=== PATIENT | female | born 1995 | race Caucasian/White ===

== ENCOUNTER 2020-03-27 12:26 | Emergency (ER) | payer OTHER ==
[2020-03-27] MEDS ORDERED: NA CHLORIDE 0.9% 1,000 ML ONE (12:58)
[2020-03-27 13:19] LABS: Absolute Lymphocytes (CBC) 2.5 K/uL (0.7-4.9); Basophils % 0.3 % (0-1.3); Hematocrit 41.3 % (36.0-45.0); Lymphocytes % 21.6 % (15.3-44.8); MPV 8.9 fL (7.6-11.3)
[2020-03-27 13:37] LABS: Protime INR 0.99
[2020-03-27 13:48] LABS: ALT/SGPT 20 U/L (12-78); AST/SGOT 19 U/L (15-37); Albumin 4.1 g/dL (3.4-5.0); Alkaline Phosphatase 46 U/L (45-117); BUN Blood Urea Nitrogen 13 mg/dL (7-18); Bicarbonate 29 mmol/L (21-32); Bilirubin Direct 0.3 mg/dL (0-0.2); CKMB Creatine Kinase MB < 1.0 ng/mL (0.3-3.6); Creatine Phosphokinase 49 U/L (26-192); Glucose Level 85 mg/dL (74-106); Lipase 110 U/L (73-393); Magnesium 2.3 mg/dL (1.8-2.4); Potassium 4.1 mmol/L (3.5-5.1); Protein, Total 7.8 g/dL (6.4-8.2); Sodium Level 139 mmol/L (136-145); Troponin (Emerg Dept Use Only) < 0.02 ng/mL (0.0-0.045)
[2020-03-27 14:25] LABS: Urine Blood NEGATIVE (NEG); Urine Glucose NEGATIVE (NEG)
[2020-03-27 14:26] LABS: Urine Protein NEGATIVE (NEG); Urine pH 7.5 (5.0-7.0)
--- NOTE | 2020-03-27 14:30 | EDPHYS ---
Physician Documentation [facility] Name: Silvina Kellogg Age: 24 yrs Sex: Female : 1995 Arrival Date: 03/27/2020 Time: 12:32 Bed 24 Private MD: ED Physician Babak Cole HPI: 03/27 12:59 This 24 yrs old Female presents to ER via EMS with complaints of passed out. ma2 12:59 The patient presents with a history of heart racing. Context: The symptoms occur with ma2 anxiety. Onset: The symptoms/episode began/occurred suddenly, 1 hour(s) ago. Associated signs and symptoms: The patient has no apparent associated signs or symptoms. Severity of symptoms: At their worst the symptoms were very mild in the emergency department the symptoms have resolved. The patient has not experienced similar symptoms in the past. Historical: - Allergies: 12:36 No Known Allergies; jd3 - Home Meds: 12:36 None [Active]; jd3 - PMHx: 12:36 None; jd3 - PSHx: 12:36 None; jd3 - Immunization history:: Adult Immunizations up to date. - Social history:: Smoking status: Patient denies any tobacco usage or history of. ROS: 12:59 Constitutional: Negative for fever, chills, and weight loss. ma2 12:59 All other systems are negative. Exam: 12:59 Constitutional: This is a well developed, well nourished patient who is awake, alert, ma2 and in no acute distress. Head/Face: Normocephalic, atraumatic. Eyes: Pupils equal round and reactive to light, extra-ocular motions intact. Lids and lashes normal. Conjunctiva and sclera are non-icteric and not injected. Cornea within normal limits. Periorbital areas with no swelling, redness, or edema. ENT: Nares patent. No nasal discharge, no septal abnormalities noted. Tympanic membranes are normal and external auditory canals are clear. Oropharynx with no redness, swelling, or masses, exudates, or evidence of obstruction, uvula midline. Mucous membranes moist. Neck: Trachea midline, no thyromegaly or masses palpated, and no cervical lymphadenopathy. Supple, full range of motion without nuchal rigidity, or vertebral point tenderness. No Meningismus. Chest/axilla: Normal chest wall appearance and motion. Nontender with no deformity. No lesions are appreciated. Cardiovascular: Regular rate and rhythm with a normal S1 and S2. No gallops, murmurs, or rubs. Normal PMI, no JVD. No pulse deficits. Respiratory: Lungs have equal breath sounds bilaterally, clear to auscultation and percussion. No rales, rhonchi or wheezes noted. No increased work of breathing, no retractions or nasal flaring. Abdomen/GI: Soft, non-tender, with normal bowel sounds. No distension or tympany. No guarding or rebound. No evidence of tenderness throughout. Skin: Warm, dry with normal turgor. Normal color with no rashes, no lesions, and no evidence of cellulitis. MS/ Extremity: Pulses equal, no cyanosis. Neurovascular intact. Full, normal range of motion. Neuro: Awake and alert, GCS 15, oriented to person, place, time, and situation. Cranial nerves II-XII grossly intact. Motor strength 5/5 in all extremities. Sensory grossly intact. Cerebellar exam normal. Normal gait. Vital Signs: 12:36 BP 138 / 82; Pulse 87; Resp 17 S; Temp 97.7(O); Pulse Ox 100% on R/A; Weight 56.7 kg jd3 (R); Height 5 ft. 7 in. (170.18 cm) (R); Pain 0/10; 13:30 BP 116 / 74; Pulse 73; Resp 18; Pulse Ox 99% on R/A; zb 14:40 BP 113 / 73; Pulse 90; Resp 18; Pulse Ox 100% on R/A; zb 12:36 Body Mass Index 19.58 (56.70 kg, 170.18 cm) jd3 MDM: 12:32 Patient medically screened. ma2 12:59 Differential diagnosis: arrythmia, dehydration, stress disorder. ma2 14:29 Data reviewed: vital signs, nurses notes. Counseling: I had a detailed discussion with ma2 the patient and/or guardian regarding: the historical points, exam findings, and any diagnostic results supporting the discharge/admit diagnosis, the presence of at least one elevated blood pressure reading (>120/80) during this emergency department visit, the need for outpatient follow up. Response to treatment: the patient's symptoms have markedly improved after treatment. 03/27 12:35 Order name: Basic Metabolic Panel nc2 03/27 12:35 Order name: CBC with Diff ma2 03/27 12:35 Order name: Ckmb ma2 03/27 12:35 Order name: CPK ma2 03/27 12:35 Order name: Hepatic Function ma2 03/27 12:35 Order name: Lipase ma2 03/27 12:35 Order name: Magnesium ma2 03/27 12:35 Order name: Protime (+inr) ma2 03/27 12:35 Order name: Ptt, Activated ma2 03/27 12:35 Order name: Troponin (emerg Dept Use Only) nc2 03/27 13:24 Order name: CBC with Automated Diff; Complete Time: 14:18 EDMS 03/27 13:39 Order name: Protime (+INR); Complete Time: 14:18 EDMS 03/27 13:39 Order name: PTT, Activated Partial Thromb; Complete Time: 14:18 EDMS 03/27 13:48 Order name: Basic Metabolic Panel; Complete Time: 14:18 EDMS 03/27 12:35 Order name: EKG; Complete Time: 12:41 ma2 03/27 12:35 Order name: Cardiac monitoring; Complete Time: 12:55 ma2 03/27 12:35 Order name: EKG - Nurse/Tech; Complete Time: 12:55 ma2 03/27 12:35 Order name: IV Saline Lock; Complete Time: 12:39 ma2 03/27 12:35 Order name: Labs collected and sent; Complete Time: 13:08 ma2 03/27 12:35 Order name: NPO; Complete Time: 12:39 ma2 03/27 12:35 Order name: O2 Per Protocol; Complete Time: 12:55 ma2 03/27 12:35 Order name: O2 Sat Monitoring; Complete Time: 12:55 ma2 03/27 12:35 Order name: Urine Dipstick-Ancillary (obtain specimen); Complete Time: 13:56 ma2 03/27 13:48 Order name: Magnesium; Complete Time: 14:18 EDMS 03/27 13:48 Order name: Lipase; Complete Time: 14:18 EDMS 03/27 13:57 Order name: Urine Dipstick--Ancillary (enter results) 03/27 13:57 Order name: Urine --Ancillary (enter results) bd 03/27 14:25 Order name: Urine --Ancillary; Complete Time: 14:30 EDMS 12 14:25 Order name: Urine Dipstick-Ancillary; Complete Time: 14:30 EDMS Administered Medications: 13:13 Drug: NS 0.9% 1000 ml Route: IV; Rate: 1 bolus; Site: right femoral; zb 14:00 Follow up: Response: No adverse reaction; IV Status: Completed infusion; IV Intake: zb 1000ml Disposition: 03/27/20 14:29 Discharged to Home. Impression: Syncope and collapse - vasovagal. - Condition is Stable. - Discharge Instructions: Syncope, [id number], Vasovagal Syncope, Adult. - Medication Reconciliation Form, Thank You Letter, Antibiotic Education, Prescription Opioid Use form. - Follow up: Private Physician; When: Today; Reason: Continuance of care. Signatures: Dispatcher [employer] Munir Davis RN RN jd3 Alzahri, Mohammad, MD MD ma2 Aria Galdamez RN RN zb Corrections: (The following items were deleted from the chart) 14:56 14:29 03/27/2020 14:29 Discharged to Home. Impression: Syncope and collapse - zb vasovagal. Condition is Stable. Forms are Medication Reconciliation Form, Thank You Letter, Antibiotic Education, Prescription Opioid Use. Follow up: Private Physician; When: Today; Reason: Continuance of care. rock
--- NOTE | 2020-03-27 14:30 | ER ---
Nurse's Notes [facility] Name: Silvina Kellogg Age: 24 yrs Sex: Female : 1995 Arrival Date: 03/27/2020 Time: 12:32 Bed 24 Private MD: Diagnosis: Syncope and collapse-vasovagal Presentation: 03/27 12:32 Chief complaint: EMS states: "the pt had a syncope episode today while talking with a jd3 co-worker. she said she felt her knees get weak and give out and then blacked out. she reports that this has happened before, but this is the longest it has lasted. at this time she is reporting no pain or any symptoms. denies nausea and vomiting. denies dizziness and feeling faint. orthostatics were negative as well. BGL was 100. she has been A\\T\\O X 4 the entire time. we started a 20 G to her left forearm.". Coronavirus screen: At this time, the client does not indicate any symptoms associated with coronavirus-19. Ebola Screen: Patient negative for fever greater than or equal to 101.5 degrees Fahrenheit, and additional compatible Ebola Virus Disease symptoms. Initial Sepsis Screen: Does the patient meet any 2 criteria? No. Patient's initial sepsis screen is negative. Does the patient have a suspected source of infection? No. Patient's initial sepsis screen is negative. Risk Assessment: Do you want to hurt yourself or someone else? Patient reports no desire to harm self or others. Onset of symptoms was March 27, 2020. 12:32 Method Of Arrival: EMS: [facility] jd3 12:32 Acuity: JAMIE 3 jd3 Historical: - Allergies: 12:36 No Known Allergies; jd3 - Home Meds: 12:36 None [Active]; jd3 - PMHx: 12:36 None; jd3 - PSHx: 12:36 None; jd3 - Immunization history:: Adult Immunizations up to date. - Social history:: Smoking status: Patient denies any tobacco usage or history of. Screenin:54 Abuse screen: Denies threats or abuse. Denies injuries from another. Nutritional zb screening: No deficits noted. Tuberculosis screening: No symptoms or risk factors identified. Fall Risk Fall in past 12 months (25 points). No secondary diagnosis (0 pts). IV access (20 points). Ambulatory Aid- None/Bed Rest/Nurse Assist (0 pts). Gait- Normal/Bed Rest/Wheelchair (0 pts) Mental Status- Oriented to own ability (0 pts). Total Grayson Fall Scale indicates Low Risk Score (25-44 pts). Fall prevention measures have been instituted. Side Rails Up X 2 Placed close to Nursing Station Frequent Obs/Assesments occuring Family Present and informed to notify staff if they need to leave bedside As available Patient and Family Educated on Fall Prevention Program and strategies. Assessment: 13:00 General: Appears in no apparent distress. uncomfortable, Behavior is cooperative, zb anxious. Pain: Denies pain. Neuro: Level of Consciousness is awake, alert, obeys commands, Oriented to person, place, time, situation, Pupils are PERRLA. Cardiovascular: Heart tones S1 S2 present Capillary refill < 3 seconds in bilateral fingers Patient's skin is warm and dry. Pulses are all present. Respiratory: Airway is patent Respiratory effort is even, unlabored, Respiratory pattern is regular, symmetrical, Breath sounds are clear bilaterally. Denies cough, shortness of breath. GI: Abdomen is flat, non-distended, Bowel sounds present X 4 quads. Abd is soft and non tender X 4 quads. : No signs and/or symptoms were reported regarding the genitourinary system. EENT: Eyes PERRLA intact, pupils 3mm . Reports pt reported blurred vision during episode, denies currently any changes in vision . Derm: No signs and/or symptoms reported regarding the dermatologic system. Skin is intact, is healthy with good turgor, Skin is normal. Musculoskeletal: Circulation, motion, and sensation intact. Range of motion: intact in all extremities. 13:57 Reassessment: Patient appears in no apparent distress at this time. Patient and/or zb family updated on plan of care and expected duration. Pain level reassessed. Patient is alert, oriented x 3, equal unlabored respirations, skin warm/dry/pink. pt ambulated to restroom. no c/o of dizziness. 14:41 Reassessment: Patient appears in no apparent distress at this time. Patient and/or zb family updated on plan of care and expected duration. Pain level reassessed. Patient is alert, oriented x 3, equal unlabored respirations, skin warm/dry/pink. pt has spoken to provider. waiting d/c. Vital Signs: 12:36 BP 138 / 82; Pulse 87; Resp 17 S; Temp 97.7(O); Pulse Ox 100% on R/A; Weight 56.7 kg jd3 (R); Height 5 ft. 7 in. (170.18 cm) (R); Pain 0/10; 13:30 BP 116 / 74; Pulse 73; Resp 18; Pulse Ox 99% on R/A; zb 14:40 BP 113 / 73; Pulse 90; Resp 18; Pulse Ox 100% on R/A; zb 12:36 Body Mass Index 19.58 (56.70 kg, 170.18 cm) jd3 ED Course: 12:32 Patient arrived in ED. jd3 12:32 Babak Cole MD is Attending Physician. ma2 12:36 Triage completed. jd3 12:37 Arm band placed on. jd3 12:38 Aria Galdamez RN is Primary Nurse. zb 13:55 Patient has correct armband on for positive identification. Call light in reach. Side zb rails up X 1. Adult w/ patient. 14:55 No provider procedures requiring assistance completed. IV discontinued, intact, zb bleeding controlled, No redness/swelling at site. Pressure dressing applied. Administered Medications: 13:13 Drug: NS 0.9% 1000 ml Route: IV; Rate: 1 bolus; Site: right femoral; zb 14:00 Follow up: Response: No adverse reaction; IV Status: Completed infusion; IV Intake: zb 1000ml Intake: 14:00 IV: 1000ml; Total: 1000ml. zb Outcome: 14:29 Discharge ordered by . ma2 14:55 Discharged to home ambulatory, with family. zb 14:55 Condition: stable 14:55 Discharge instructions given to patient, family, Instructed on discharge instructions, follow up and referral plans. Demonstrated understanding of instructions, follow-up care. 14:56 Patient left the ED. zb Signatures: Munir Pearson RN RN jBabak Spence MD MD ma2 Brown, Zipporah, RN RN zkelley
--- NOTE | 2020-03-28 07:15 | EKG ---
Test Date: 2020-03-27 Test Time: 12:51:30 Development Vice President: OPHELIA MEASUREMENT RESULTS: Intervals: Rate: 60 FL: 156 QRSD: 108 QT: 416 QTc: 416 [place]: P: 80 FL: 156 QRS: 72 T: 50 INTERPRETIVE STATEMENTS: Normal sinus rhythm Incomplete right bundle branch block Possible Anterior infarct, age undetermined Abnormal ECG No previous ECG available for comparison Electronically Signed On 03-28-20 07:09:08 GLASS CALIBRATOR by Jac Brady
== END 2020-03-27 14:56 | disposition home or self-care (01) ==
LOC: ER 12:26
DX: R55 Syncope and collapse (principal)
CPT/HCPCS: 93005; 85025; 80048; 36415; 83735; 82550; 81025; 85610; 80076; 85730; 81003; 84484; 82553; 83690; 96360; 99283; J7030